=== PATIENT | female | born 1935 | race Caucasian/White ===

== ENCOUNTER 2017-06-24 14:52 | Emergency (ER) | payer OTHER ==
[~2017-06-24] VITALS: Ht 152.4 cm; Wt 52.2 kg
[~2017-06-24 14:52] MED LIST: HYDROXYCHLOROQ200 M1; NAPROSYN250 MG PO; TRIAMTERENE-HC1 EAC1 PO; TYLENOL EX-STR500 M2 PO
[2017-06-24 17:14] VITALS: BP 148/54
== END 2017-06-24 17:16 | disposition home or self-care (01) ==
LOC: ER 14:52
DX: S01.112A Laceration without foreign body of left eyelid and periocular area, initial encounter (principal); I10 Essential (primary) hypertension; M06.9 Rheumatoid arthritis, unspecified; F10.99 Alcohol use, unspecified with unspecified alcohol-induced disorder; Z90.49 Acquired absence of other specified parts of digestive tract; Z90.710 Acquired absence of both cervix and uterus; Z85.42 Personal history of malignant neoplasm of other parts of uterus; Z88.8 Allergy status to other drugs, medicaments and biological substances; W01.0XXA Fall on same level from slipping, tripping and stumbling without subsequent striking against object, initial encounter; Y93.01 Activity, walking, marching and hiking; Y92.89 Other specified places as the place of occurrence of the external cause; Y99.8 Other external cause status

== ENCOUNTER 2018-11-25 19:37 | Emergency (ER) | payer OTHER ==
[~2018-11-25] VITALS: Ht 152.4 cm; Wt 51.7 kg
[2018-11-25 19:38] VITALS: BP 172/69
[2018-11-25] MEDS ORDERED: NORVASC5 MG PO (19:55)
[2018-11-25] MEDS ORDERED: KLOR-CON 1010 MEQ PO (19:56)
== END 2018-11-25 20:32 | disposition home or self-care (01) ==
LOC: ER 19:37
DX: S70.01XA Contusion of right hip, initial encounter (principal); I10 Essential (primary) hypertension; M06.9 Rheumatoid arthritis, unspecified; Z88.8 Allergy status to other drugs, medicaments and biological substances; Z88.4 Allergy status to anesthetic agent; Z90.710 Acquired absence of both cervix and uterus; Z90.49 Acquired absence of other specified parts of digestive tract; W18.39XA Other fall on same level, initial encounter; Y92.89 Other specified places as the place of occurrence of the external cause; Y93.89 Activity, other specified; Y99.8 Other external cause status

== ENCOUNTER 2020-03-19 14:36 | Emergency (ER) | payer MEDICARE ==
[~2020-03-19] VITALS: Ht 152.4 cm; Wt 49.9 kg
[~2020-03-19 14:36] MED LIST changes: +KLOR-CON 1010 MEQ PO; +NORVASC5 MG PO
[2020-03-19 16:24] VITALS: BP 145/63
== END 2020-03-19 16:24 | disposition home or self-care (01) ==
LOC: ER 14:36
DX: S01.01XA Laceration without foreign body of scalp, initial encounter (principal); S61.512A Laceration without foreign body of left wrist, initial encounter; M25.512 Pain in left shoulder; I10 Essential (primary) hypertension; M06.9 Rheumatoid arthritis, unspecified; Z90.711 Acquired absence of uterus with remaining cervical stump; Z85.41 Personal history of malignant neoplasm of cervix uteri; Z79.899 Other long term (current) drug therapy; Z88.4 Allergy status to anesthetic agent; Z88.5 Allergy status to narcotic agent; W01.10XA Fall on same level from slipping, tripping and stumbling with subsequent striking against unspecified object, initial encounter; Y93.89 Activity, other specified; Y92.89 Other specified places as the place of occurrence of the external cause; Y99.8 Other external cause status

== ENCOUNTER 2020-07-28 01:12 | Emergency (ER) | payer MEDICARE ==
[~2020-07-28] VITALS: Ht 152.4 cm; Wt 48.5 kg
[2020-07-28 03:45] VITALS: BP 167/70
== END 2020-07-28 03:25 | disposition home or self-care (01) ==
LOC: ER 01:12
DX: S01.01XA Laceration without foreign body of scalp, initial encounter (principal); I10 Essential (primary) hypertension; Z90.49 Acquired absence of other specified parts of digestive tract; Z90.710 Acquired absence of both cervix and uterus; Z79.899 Other long term (current) drug therapy; Z88.8 Allergy status to other drugs, medicaments and biological substances; W01.198A Fall on same level from slipping, tripping and stumbling with subsequent striking against other object, initial encounter; Y93.89 Activity, other specified; Y92.89 Other specified places as the place of occurrence of the external cause; Y99.8 Other external cause status

== ENCOUNTER 2021-10-23 20:27 | Emergency (ER) | payer MEDICARE ==
[~2021-10-23] VITALS: Ht 152.4 cm; Wt 49.4 kg
[2021-10-23 22:45] VITALS: BP 142/58
== END 2021-10-23 22:47 | disposition home or self-care (01) ==
LOC: ER 20:27
DX: S01.01XA Laceration without foreign body of scalp, initial encounter (principal); S09.90XA Unspecified injury of head, initial encounter; I10 Essential (primary) hypertension; Z90.710 Acquired absence of both cervix and uterus; Z90.49 Acquired absence of other specified parts of digestive tract; Z79.899 Other long term (current) drug therapy; Z88.5 Allergy status to narcotic agent; Z88.8 Allergy status to other drugs, medicaments and biological substances; W01.0XXA Fall on same level from slipping, tripping and stumbling without subsequent striking against object, initial encounter; Y93.89 Activity, other specified; Y92.89 Other specified places as the place of occurrence of the external cause; Y99.8 Other external cause status